=== PATIENT | male | born 1995 | race Caucasian/White ===

== ENCOUNTER 2016-04-25 00:38 | Emergency (ER) | payer OTHER ==
[2016-04-25] MEDS ORDERED: IBUPROFEN 600 MG TABLET PO STA (01:40)
[2016-04-25] MEDS ORDERED: IBUPROFEN 600 MG TABLET PO ONE (01:44)
== END 2016-04-25 02:02 | disposition home or self-care (01) ==
DX: T14.8 Other injury of unspecified body region (principal); V57.5XXA Driver of pick-up truck or van injured in collision with fixed or stationary object in traffic accident, initial encounter; Y92.410 Unspecified street and highway as the place of occurrence of the external cause
CPT/HCPCS: 71101; 99283; A9270

== ENCOUNTER 2017-06-20 11:12 | Outpatient (CLI) | payer OTHER | END 2017-06-20 11:13 | disposition critical access hospital (66) | LOC: EMS 11:12 | PROVIDERS: ATTEND Surgery | DX: Z02.9 Encounter for administrative examinations, unspecified (principal); V53.5XXA Driver of pick-up truck or van injured in collision with car, pick-up truck or van in traffic accident, initial encounter; Y92.413 State road as the place of occurrence of the external cause | CPT/HCPCS: A0425; A0429 ==

== ENCOUNTER 2017-06-20 11:57 | Emergency (ER) | payer OTHER ==
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
[2017-06-20] MEDS ORDERED: ONDANSETRON ODT 4 MG TABLET TL STA (12:13)
[2017-06-20] MEDS ORDERED: ACETAMINOPHEN 325 MG TABLET PO STA (12:14)
--- NOTE | 2017-06-20 12:57 | XRAY Preliminary Report ---
Exam: XR CERVICAL SPINE 2 VIEW IMPRESSION: Normal cervical spine radiography. [facility] SITE ID: [id number]
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
[2017-06-20 14:25] VITALS: BP 109/72
== END 2017-06-20 14:35 | disposition home or self-care (01) ==
LOC: EDUNIT# → ED 11:57 → SUPCPDRO 11:57 → ED 14:35
DX: S16.1XXA Strain of muscle, fascia and tendon at neck level, initial encounter (principal); V53.5XXA Driver of pick-up truck or van injured in collision with car, pick-up truck or van in traffic accident, initial encounter; F34.1 Dysthymic disorder
CPT/HCPCS: 72040; 99283; A9270; Q0162

== ENCOUNTER 2017-07-06 16:21 | Emergency (ER) | payer MEDICAID, OTHER ==
[2017-07-06 16:28] VITALS: BP 125/82
[2017-07-06] MEDS ORDERED: MAG HYDROX/AL HYDROX/SIMETH 30 ML UDC PO STA (16:47)
[2017-07-06] MEDS ORDERED: LIDOCAINE VISCOUS 2% 15 ML UDC MM STA (16:47)
--- NOTE | 2017-07-06 17:01 | ED Physician Documentation ---
PD HPI HEENT - Stated complaint Stated Complaint: FB IN THROAT - Chief complaint Chief Complaint: Heent - History obtained from History obtained from: Patient - History of Present Illness Timing - onset: Yesterday Timing - details: Still present Location: Throat Worsens: [place] Associated symptoms: No: Fever, Cough Similar symptoms before: Has not had sx before - Additional information Additional information: The patient is a 21-year-old male who presents with sore throat, stating that he thinks there is something stuck in his throat, although he has no idea what it might be. His symptoms started yesterday, and persist today. He had vomiting yesterday and the day before, prior to the onset of sore throat. He has not been vomiting today. He denies headache, fever, abdominal pain, or diarrhea. He denies history of similar symptoms in the past. Review of Systems Constitutional: denies: Fever Ears: denies: Ear pain Nose: denies: Congestion Throat: reports: Sore throat Cardiac: denies: Chest pain / pressure Respiratory: denies: Dyspnea, Cough GI: reports: Vomiting (yesterday and the day before, but not today.). denies: Abdominal Pain, Diarrhea : denies: Dysuria Skin: denies: Rash Neurologic: denies: Headache PD PAST MEDICAL HISTORY - Past Medical History Past Medical History: Yes Cardiovascular: None Respiratory: None Neuro: None Endocrine/Autoimmune: None Psych: Depression, Anxiety - Past Surgical History Past Surgical History: No - Present Medications Home Medications: Ambulatory Orders Medication Instructions Recorded Confirmed No Known Home Medications [No 07/06/17 07/06/17 Known Home Medications] - Allergies Allergies/Adverse Reactions: Allergies Allergy/AdvReac Type Severity Reaction Status Date / Time No Known Drug Allergies Allergy Verified 07/06/17 16:32 - Social History Does the pt smoke?: No Smoking Status: Never smoker Does the pt drink ETOH?: No Does the pt have substance abuse?: No - Immunizations Immunizations are current?: Yes - POLST Patient has POLST: No PD ED PE NORMAL - Vitals Vital signs reviewed: Yes (normal) - General General: Alert and oriented X 3 - HEENT HEENT: Atraumatic, EOMI, Ears normal, Pharynx benign, Other (Visual laryngoscopy , using a dental mirror, revealed no evidence of foreign body.) - Neck Neck: Supple, no meningeal sign, No adenopathy - Cardiac Cardiac: RRR, No murmur - Respiratory Respiratory: No respiratory distress, Clear bilaterally - Abdomen Abdomen: Soft, Non tender - Back Back: No CVA TTP - Derm Derm: No rash - Neuro Neuro: Alert and oriented X 3, No motor deficit, Normal speech Results - Vitals Vitals: Oxygen O2 Source Room air PD MEDICAL DECISION MAKING - ED course Complexity details: re-evaluated patient, considered differential, d/w patient ED course: The patient's sore throat is most likely due to previous vomiting, with inflammation of his throat, or possible abrasion. There is no clinical evidence of acute pharyngitis, and I doubt foreign body. A mixture of Maalox and viscous lidocaine was administered orally, which transiently improved the patient's symptoms. I discussed with him the likely course of illness, symptomatic treatment and outpatient follow-up, as well as potentially worrisome signs or symptoms that should prompt reevaluation in the emergency department. Departure - Departure Disposition: 01 Home, Self Care Clinical Impression: Sore throat Condition: Stable Instructions: ED Abrasion Pharyngeal Comments: Gargle with cool liquids. You can use Tylenol or ibuprofen if needed for discomfort. Follow up with your primary physician, or return to the emergency department if you develop increasing difficulty swallowing, or otherwise worsening symptoms. Discharge Date/Time: 07/06/17 17:03
== END 2017-07-06 17:03 | disposition home or self-care (01) ==
LOC: ED 16:21
DX: J02.9 Acute pharyngitis, unspecified (principal)
CPT/HCPCS: 99282; 99283; A9270

== ENCOUNTER 2021-07-26 08:54 | Emergency (ER) | payer MEDICAID ==
--- NOTE | 2021-07-26 09:57 | ED Physician Documentation ---
History of Present Illness - Stated complaint Stated Complaint: RT EAR PX - Chief complaint Chief Complaint: Heent - History obtained from History obtained from: Patient - History of Present Illness Timing: Today Pain level max: 0 Pain level now: 0 - Additonal information Additional information: 25-year-old male presents to the emergency department complaining of earwax clogging his right ear. Nothing makes it better or worse. No pain. No dizziness. No fevers. No chills. Review of Systems Constitutional: denies: Fever, Chills GI: denies: Vomiting PD PAST MEDICAL HISTORY - Past Medical History Past Medical History: Yes Cardiovascular: None Respiratory: None Neuro: None Endocrine/Autoimmune: None HEENT: None Psych: Depression, Anxiety - Past Surgical History Past Surgical History: No - Present Medications Home Medications: Ambulatory Orders Medication Instructions Recorded Confirmed No Known Home Medications 07/06/17 07/26/21 - Allergies Allergies/Adverse Reactions: Allergies Allergy/AdvReac Type Severity Reaction Status Date / Time No Known Drug Allergies Allergy Verified 07/26/21 09:01 - Social History Does the pt smoke?: No Smoking Status: Never smoker Does the pt drink ETOH?: No Does the pt have substance abuse?: No - Immunizations Immunizations are current?: Yes - POLST Patient has POLST: No PD ED PE NORMAL - Vitals Vital signs reviewed: Yes - General General: Alert and oriented X 3, No acute distress - HEENT HEENT: Other (Left TM is normal. Right ear canal has cerumen impaction present.) - Neck Neck: Supple, no meningeal sign - Derm Derm: Warm and dry - Neuro Neuro: Alert and oriented X 3 Results - Vitals Vitals: Vital Signs - 24 hr 07/26/21 07/26/21 08:59 10:03 Temperature 36.0 C L 36.6 C Heart Rate 77 75 Respiratory 16 16 Rate Blood Pressure 129/86 H 113/65 O2 Saturation 98 98 Oxygen O2 Source Room air PD MEDICAL DECISION MAKING - ED course Complexity details: considered differential, d/w patient ED course: Patient with a right-sided cerumen impaction. This was irrigated, impaction resolved. Patient counseled regarding signs and symptoms for which I believe and urgent re-evaluation would be necessary. Patient with good understanding of and agreement to plan and is comfortable going home at this time This document was made in part using voice recognition software. While efforts are made to proofread this document, sound alike and grammatical errors may occur. Departure - Departure Disposition: 01 Home, Self Care Clinical Impression: Cerumen impaction Qualifiers: Laterality: right Qualified Code(s): H61.21 - Impacted cerumen, right ear Condition: Good Instructions: ED Wax Ear Home Removal Follow-Up: your,doctor as needed [Other] Comments: Please follow-up with your doctor as needed for further care. Return if you worsen. Discharge Date/Time: 07/26/21 10:04
[2021-07-26 10:04] VITALS: BP 113/65
== END 2021-07-26 10:04 | disposition home or self-care (01) ==
LOC: ED 08:54
DX: H61.21 Impacted cerumen, right ear (principal)
CPT/HCPCS: 69209; 99282